=== PATIENT | male | born 1965 | race Two or more races ===

== ENCOUNTER 2020-09-05 09:43 | Emergency (ER) | payer BC, OTHER ==
[~2020-09-05] VITALS: Ht 188 cm; Wt 111.1 kg
[2020-09-05 10:25] LABS: Basophils # (auto) 0 10 ^3/uL (0-0.2); Eosinophils # (auto) 0.1 10 ^3/uL (0-0.8); Eosinophils % (auto) 2.3 % (0.0-7.0); Hematocrit 48.2 % (41.0-53.0); Hemoglobin 17.3 g/dL (13.5-17.5); Lymphocytes # (auto) 0.9 10 ^3/uL (0.4-5.4); Mean Corpuscular Hemoglobin 31.8 pg (28.0-32.0); Mean Corpuscular Volume 88.2 fL (80.0-100.0); Monocytes # (auto) 0.3 10 ^3/uL (0-1.3); Monocytes % (auto) 8.2 % (0.0-12.0); Neutrophils # (auto) 2.8 10 ^3/uL (1.6-8.6); Neutrophils % (auto) 66.5 % (37.0-80.0); Nucleated Red Blood Cells % 0.2 %; Red Blood Cells 5.46 10^6/uL (4.5-5.90); Red Cell Distribution Width 13.5 % (11.8-14.3); White Blood Cell 4.1 10^3/uL (4.4-10.8)
[2020-09-05 10:30] LABS: Urine Bacteria NONE SEEN /hpf (None Seen); Urine Blood Negative /uL (Negative); Urine Specific Gravity 1.003 (1.001-1.035); Urine WBC <1 /hpf (0 - 3)
[2020-09-05 10:57] LABS: Potassium 3.7 mmol/L (3.5-5.1)
[2020-09-05 11:07] LABS: Albumin 4.3 g/dL (3.4-5.0); BUN/Creatinine Ratio 8.8; Bilirubin, Total 0.7 mg/dL (0.2-1.0); Total Protein 8.2 g/dL (6.4-8.2)
[2020-09-05 12:22] VITALS: BP 131/91
== END 2020-09-05 12:24 | disposition home or self-care (01) ==
LOC: ER 09:43
DX: R42 Dizziness and giddiness (principal); I10 Essential (primary) hypertension
CPT/HCPCS: 36415; 70450; 71045; 80053; 81001; 83880; 84484; 85025; 85049; 93005